=== PATIENT | female | born 1995 | race Caucasian/White ===

== ENCOUNTER 2024-08-21 18:31 | Emergency (ER) | payer SELFPAY ==
[2024-08-21] MEDS ORDERED: Penicillin V Potassium 250 MG TAB ONE (18:49)
[2024-08-21] MEDS ORDERED: HYDROcodone/Acetaminophen 5/325 mg Tablet ONE (18:49)
== END 2024-08-21 19:01 | disposition home or self-care (01) ==
LOC: NAV ERS 18:31
DX: K04.4 Acute apical periodontitis of pulpal origin (principal); F17.210 Nicotine dependence, cigarettes, uncomplicated
CPT/HCPCS: 99283